=== PATIENT | male | born 1970 | race Caucasian/White ===

== ENCOUNTER 2017-02-11 08:57 | Day surgery (SDC) | payer BC ==
[2017-02-10 16:47] VITALS: BMI 32.1
[2017-02-11 09:47] LABS: #Eosinphils 0.1 thou/uL (0.0-0.7); #Lymphocytes 1.6 thou/uL (1.20-3.40); #Monocytes 0.4 thou/uL (0.11-0.59); #Neutrophils 5.9 thou/uL (1.40-6.50); %Basophils 0.4 % (0.0-1.0); %Eosinophils 0.6 % (0.0-10.0); %Lymphocytes 19.7 % (21.0-51.0); %Monocytes 5.5 % (0.0-10.0); Hematocrit 49.5 % (42.0-52.0); Mean Platelet Volume 7.7 fL (7.4-10.4); Red Blood Cell (RBC) Count 5.24 mill/uL (4.70-6.10)
[2017-02-11 10:04] LABS: Anion Gap 12 mmol/L (10-20); BUN (Urea Nitrogen) 20 mg/dL (8.9-20.6); Calc. Creatinine Clearance 125 mL/min (70-130); Calcium 9.8 mg/dL (7.8-10.44); Carbon Dioxide 26 mmol/L (22-29); Chloride 107 mmol/L (98-107); Estimated GFR-MDRD 72
[2017-02-11] MEDS ORDERED: Diprivan 20 ML ONE (10:10)
[2017-02-11] MEDS ORDERED: CEFAZOLIN/Water 2 GM/20 ML SYRINGE ONE (10:19)
[2017-02-11] MEDS ORDERED: Fentanyl 100 MCG/2 ML VIAL ONE (12:06)
[2017-02-11] MEDS ORDERED: Dexamethasone 20 MG/5 ML VIAL ONE (15:14)
[2017-02-11] MEDS ORDERED: Lidocaine 1% PF 5 ML VIAL ONE (15:14)
[2017-02-11] MEDS ORDERED: Ketorolac Tromethamine 30 MG/ML VIAL ONE (15:14)
[2017-02-11] MEDS ORDERED: Ondansetron HCl/PF 4 MG/2 ML Vial ONE (15:14)
[2017-02-11] MEDS ORDERED: Propofol 200 MG/20 ML VIAL ONE (15:14)
[2017-02-11] MEDS ORDERED: Lidocaine 2% w/Epinephrine 1:200K 20 ML VIAL ONE (15:56)
[2017-02-11] MEDS ORDERED: Bupivacaine HCl 0.5%/Epinephrine 1:200,000/PF 30 ml Vial ONE (15:56)
--- NOTE | 2017-02-13 00:23 | OP ---
DATE OF PROCEDURE: 02/11/2017 PREOPERATIVE DIAGNOSIS: Right knee medial meniscus tear. POSTOPERATIVE DIAGNOSES: 1. Right knee medial meniscal tear. 2. 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 SURGEON: Richie Grimes M.D. MEDICAL RECORDS AUDITOR: None. BLOOD LOSS: Minimal. COMPLICATIONS: None. ANESTHETIC: The patient had local knee block as well as a general anesthetic. DISPOSITION: He did go to the recovery room in stable condition. PROCEDURES PERFORMED: 1. Right knee arthroscopy with partial medial meniscectomy. 2. Chondroplasty of superior medial patella. INDICATIONS: A 46-year-old male who comes in complaining of right knee pain and swelling. At this t eloy, he has failed nonoperative treatment and wished to have surgery. DESCRIPTION OF PROCEDURE: After all appropriate consent forms were explained and signed, he was take n back to the operating room and at this time was given a general anesthetic. Once the level of anes thesia was appropriate, a tourniquet was placed on the right thigh and the leg was then prepped and d raped in the standard surgical fashion. The limb was exsanguinated and the tourniquet was taken up t o 300 mmHg. An inferolateral portal was then established and the scope was placed into the knee join t. A needle localization technique was then used to make a medial working portal. Diagnostic arthro scopy commenced in the notch. The ACL and PCL were probed and found to be intact. Medial compartmen t showed the patient had a complex tear including the entire posterior horn of medial meniscus with a large flap tear that was still connected to the root region and as you went more towards the body, t here were meniscal tissues down in between the meniscotibial recess. Partial medial meniscectomy was performed using the meniscal biter and shaver. There was also a small area of grade 2 chondromalaci a with an unstable cartilage flap on the medial femoral condyle that was treated with gently debridin g this unstable flap with the chondrotome. The lateral compartment was evaluated and found to be int act. Both medial and lateral gutters were swept through and no loose bodies were noted and the peters lofemoral joint was evaluated showing that the trochlea was in good condition; however, the superior medial facet of the patella had some large unstable chondral flaps and this was taken back to a stabl base using the shaver as well. At this time, scope was removed, the knee was drained, and portals were closed with simple nylon stitch. Bulky sterile dressing was applied. The tourniquet was let do wn. Toes pinked up nicely. The patient was then awakened and taken to the recovery room in stable c ondition. All counts were correct at the end of the case and he did receive preoperative IV antibiot ics.
== END 2017-02-11 14:45 | disposition home or self-care (01) ==
LOC: SDC 08:57
PROVIDERS: ATTEND Orthopaedic Surgery
PROC: 0SBC4ZZ Excision of Right Knee Joint, Percutaneous Endoscopic Approach (ICD-10-PCS; principal; 2017-02-11)
DX: S83.231A Complex tear of medial meniscus, current injury, right knee, initial encounter (principal); M22.41 Chondromalacia patellae, right knee; F17.200 Nicotine dependence, unspecified, uncomplicated
CPT/HCPCS: 36415; 80048; 85025; 93005; 93010; G8978-GP-CI; G8979-GP-CI; G8980-GP-CI; J0670; J1100; J1885; J2001; J2405; J2704; J3010